=== PATIENT | male | born 1980 ===

== ENCOUNTER 2016-12-30 10:16 | Emergency (ER) | payer OTHER ==
[2016-12-30 10:27] VITALS: BMI 29.2
[2016-12-30 10:32] VITALS: TEMP 98.6
--- NOTE | 2016-12-30 11:30 | ED PDOC ---
Arrival/HPI - General Chief Complaint: Abnormal Skin Integrity Time Seen by Provider: 12/30/16 10:46 Historian: Patient - History of Present Illness Narrative History of Present Illness (Text): 12/30/16 11:27 36-year-old male presents today with a laceration to the right fourth finger. Patient states he was using a grinder chipper and as the granddaughter came down he is not sure if the piece of metal kicked back and hit him in the finger or he cut himself with the grinder chipper. He is complaining of a laceration to the distal tip of the fourth finger. Denies numbness weakness or tingling in the extremities. Patient states his last tetanus shot was last year. Patient denies fevers or chills. Incident occurred prior to arrival. No other complaints Symptom Onset: Sudden Symptom Course: Unchanged Quality: Stabbing, Throbbing Severity Level: 5 Past Medical History - Provider Review Nursing Documentation Reviewed: Yes - Travel History Have you recently traveled outside [place] w/in the past 3 mons?: No - Infectious Disease Hx of Infectious Diseases: None - Tetanus Immunization Tetanus Immunization: Up to Date - Neurological Hx Seizures: Yes - Psychiatric Hx Substance Use: No - Anesthesia Hx Anesthesia: No Hx Anesthesia Reactions: No Hx Malignant Hyperthermia: No Family/Social History - Physician Review Nursing Documentation Reviewed: Yes Family/Social History: Unknown Family HX Smoking Status: Current Some Days Smoker Hx Alcohol Use: Yes Frequency of alcohol use: Socially Hx Substance Use: No Allergies/Home Meds Allergies/Adverse Reactions: Allergies No Known Allergies Allergy (Verified 12/30/16 10:32) Home Medications: Home Meds Medication Instructions Recorded Confirmed Divalproex [Depakote] 500 mg PO BID 12/30/16 12/30/16 Review of Systems - Review of Systems Constitutional: absent: Fatigue, Fevers Respiratory: absent: SOB, Cough Cardiovascular: absent: Chest Pain, Palpitations Gastrointestinal: absent: Abdominal Pain, Nausea, Vomiting Musculoskeletal: Arthralgias (right 4th finger pain) Skin: Laceration (right 4th finger). absent: Pruritis Neurological: absent: Headache, Dizziness Psychiatric: absent: Anxiety, Depression Physical Exam Vital Signs Reviewed: Yes Vital Signs Temp Pulse Resp BP Pulse Ox 12/30/16 11:42 65 18 134/75 98 12/30/16 10:27 98.6 F 66 16 136/84 99 Temperature: Afebrile Blood Pressure: Normal Pulse: Regular Respiratory Rate: Normal Appearance: Positive for: Well-Appearing, Non-Toxic, Comfortable Pain Distress: None Mental Status: Positive for: Alert and Oriented X 3 - Systems Exam Head: Present: Atraumatic Mouth: Present: Moist Mucous Membranes Respiratory/Chest: Present: Clear to Auscultation Cardiovascular: Present: Regular Rate and Rhythm Upper Extremity: Present: NORMAL PULSES, Tenderness (right 4th finger; there is a small c shaped approx 1.5cm laceration with small 0.5cm linear laceration along the volar aspect of the finger. sensation and distal pulses intact; cap refill <2. ), Swelling, Neurovascularly Intact, Capillary Refill < 2s. No: Normal ROM, Erythema, Deformity Neurological: Present: GCS=15 Skin: Present: Warm, Dry, Normal Color Psychiatric: Present: Alert, Oriented x 3 Medical Decision Making ED Course and Treatment: 12/30/16 11:36 Patient is nontoxic well appearing in no distress. Vital signs are stable. pt is left hand dominant Wound irrigated well with high pressure irrigation Tetanus up to date; pt states last tetanus was last year. Motrin keflex po xray right 4th finger; no fracture; no fb Laceration repair: 5 sutures placed. Bacitracin and dressing applied Patient was advised to keep the wound clean and dry, apply bacitracin twice daily. Advised to return immediately if signs of infection develop or return if any other concerning symptoms develop Impression: Laceration, finger Motrin every 6 hours as needed for pain Keflex one tablet 4 times daily] x 7 days Keep the wound clean and dry, apply bacitracin twice daily Return in 7 days for suture removal Return immediately if signs of infection develop: High fevers, increasing pain, redness, swelling, purulent discharge Follow up with the Hand specialist within the next 2 days. Followup with primary care physician within the next 2 days Return if any other concerning symptoms develop 12/30/16 12:30 - RAD Interpretation Radiology Orders: 12/30/16 10:47 HAND RIGHT 4TH DIGIT (FINGER) [RAD] Stat - Medication Orders Current Medication Orders: Discontinued Medications Lidocaine HCl (Lidocaine 2% 20ml Vial) 3 ml IJ ONCE STA Stop: 12/30/16 11:52 Last Admin: 12/30/16 12:02 Dose: 3 ml Comments: admin by PA Snow Procedure: Wound Repair - Procedure Procedure: Wound Repair: laceration, finger - Performed by Performed by: Mid-level Provider - Indications Indication(s):: Laceration - Location Finger:: Right, Ring Shape:: Curvilinear Depth:: Epidermis - Anesthetic Technique Anesthetic Technique: Regional block (digital block) Local/Regional Anesthetic:: Lidocaine 2% - Debris Debris:: None - Irrigated Irrigated with ml of normal saline: copious amounts of NS using high pressure irrigation - Complexity Complexity:: Simple (one layer) - Wound repair method Sutures:: # (5), Size (4.0), Type (nylon), Technique (interrupted) - Complications Complications: NONE - Patient tolerated procedure Patient Tolerated Procedure:: Well Disposition/Present on Arrival - Present on Arrival Any Indicators Present on Arrival: No History of DVT/PE: No History of Uncontrolled Diabetes: No Urinary Catheter: No History of Decub. Ulcer: No History Surgical Site Infection Following: None - Disposition Have Diagnosis and Disposition been Completed?: Yes Diagnosis: Laceration of finger Disposition: HOME/ ROUTINE Disposition Time: 11:41 Patient Plan: Discharge Patient Problems: Current Active Problems Problem Status Onset Laceration of finger Acute Condition: GOOD Discharge Instructions (ExitCare): Laceration (ED), Care For Your Stitches (ED) Additional Instructions: Motrin every 6 hours as needed for pain Keflex one tablet 4 times daily] x 7 days Keep the wound clean and dry, apply bacitracin twice daily Return in 7-10 days for suture removal Return immediately if signs of infection develop: High fevers, increasing pain, redness, swelling, purulent discharge Follow up with the Hand specialist within the next 2 days. Followup with primary care physician within the next 2 days Return if any other concerning symptoms develop Prescriptions: Cephalexin [Keflex] 500 mg PO QID #28 capsule Ibuprofen [Motrin] 600 mg PO Q6H PRN #20 tab PRN Reason: pain/fever reduction Referrals: Harrison Ayers MD [Primary Care Provider] - Follow up with primary Souleymane Vela MD [Staff Provider] - Follow up with primary Forms: [facility] (Hungarian), WORK NOTE
--- NOTE | 2016-12-30 11:34 | RAD ---
PROCEDURE: Right Hand and 4th digit Radiographs. HISTORY: laceration, distal dip finger COMPARISON: None. FINDINGS: BONES: Normal. No fracture. JOINTS: Normal. No osteoarthritic changes. SOFT TISSUES: Normal. OTHER FINDINGS: None. IMPRESSION: Normal right hand radiographs.
[2016-12-30 11:43] VITALS: RESP 18
[2016-12-30] MEDS ORDERED: Lidocaine 2% Inj (20ml) IJ STA (11:51)
[2016-12-30 12:29] VITALS: BP 132/71; PULSE 64; O2SAT 100
== END 2016-12-30 12:42 | disposition home or self-care (01) ==
LOC: ED 10:16
DX: S61.214A Laceration without foreign body of right ring finger without damage to nail, initial encounter (principal); W45.8XXA Other foreign body or object entering through skin, initial encounter